=== PATIENT | female | born 1950 | race Caucasian/White ===

== ENCOUNTER 2018-06-24 13:52 | Inpatient (IN) | payer MEDICARE, BC ==
[~2018-06-24] VITALS: Ht 162.6 cm; Wt 117.9 kg
[2018-06-24 14:25] VITALS: BP 139/88
[2018-06-24] MEDS ORDERED: NS 1000ML 1,000 ML IV ONE ×2 (14:30→16:30)
[2018-06-24 14:35] LABS: BASOPHIL % 0.2 % (0.0-0.2); HEMOGLOBIN 14.2 g/dL (12.0-15.0); LYMPHOCYTES % 5.2 % (24.0-44.0); MEAN CELL HGB 29.8 pg (26-34); MEAN CELL HGB CONCENTRATION 32.5 g/dL (33-37); MEAN CORP VOLUME 91.8 fL (78-100); MEAN PLATELET VOLUME 10.8 fL (7.8-11.0); MONOCYTES # 2.1 10^3/uL (0.3-0.8); MONOCYTES % 11.3 % (5.0-12.0); NEUTROPHIL # 15.3 10^3/uL (1.8-7.7); NEUTROPHILS % 82.8 % (41.0-85.0); RED CELL DISTRIBUTION WIDTH 15.2 % (11.5-14.5); WHITE BLOOD CELL 18.4 10^3/uL (4.5-11.0)
[2018-06-24] MEDS ORDERED: NS 1000ML 1,000 ML ONE ×2 (14:35→16:12)
--- NOTE | 2018-06-24 14:46 | DIREP ---
PROCEDURE:CHEST 1 VIEW COMPARISON:[facility], CR, XRAY RIBS W/PA CHEST 3VWS-RT, 03/16/2018, 09:52 PM. INDICATIONS:fever FINDINGS: LUNGS/PLEURA:Lordotic projection and low lung volumes. Mild right basilar atelectasis or early infiltrate. No sizable pleural effusion. CARDIAC:Prominent cardiac silhouette and normal pulmonary vascularity. MEDIASTINUM:Normal BONES:Bilateral shoulder arthrosis. OTHER:No additional findings. CONCLUSION:Decreased aeration and mild right basilar atelectasis or early infiltrate. Dictated by: Zeynep Hudson MD on 06/24/2018 at 02:43 PM
[2018-06-24 15:11] LABS: BAND NEUTROPHILS 2 % (2-6); DIFFERENTIAL COMMENT NORMAL; LYMPHOCYTE 2 % (25-36); MONOCYTE 9 % (3-9); SEGMENTED NEUTROPHILS 87 % (31-76)
[2018-06-24 15:13] LABS: ALANINE AMINOTRANSFERASE(ML) 26 U/L (12-78); ALKALINE PHOSPHATASE 107 U/L (50-136); ASPARTATE AMINO TRANSFERASE 29 U/L (0-35); CARBON DIOXIDE 21.6 mmol/L (20.0-32); GLUCOSE 146 mg/dL (70-110)
--- NOTE | 2018-06-24 15:24 | PCM.EKG ---
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
[2018-06-24] MEDS ORDERED: ZITHROMAX 500 MG in NS 250ML 250 ML IV STA (16:02)
[2018-06-24] MEDS ORDERED: ROCEPHIN IM STA (16:02)
--- NOTE | 2018-06-24 16:07 | NUR ---
DIANE CONTRERAS IN ER TO SEE PT.
[2018-06-24] MEDS ORDERED: ROCEPHIN ONE (16:12)
[2018-06-24] MEDS ORDERED: NS 250ML 250 ML IV ONE ×2 (16:12→20:08)
--- NOTE | 2018-06-24 16:18 | ER.PDOC ---
General Chief Complaint: General Complaint Stated Complaint: FEVER,NAUSEA,BACK PAIN TRAVEL OUT OF US: No Time seen by MD: 15:03 Source: patient, family Exam Limitations: no limitations History of Present Illness Initial Comments the patient presents to the ER accompanied by her complaining of 4 day h /o shaking, chills, shortness of breath, subjective fever, malaise, and mild cough. the patient has had decreased po intake and urine output. she denies headache, vomiting, c/d, urinary c/o, neck pain, cp, ap, or rash. the patient notes lower back pain which occasionally flares up and is not new for her. no other allev/exac factors. no other complaints. Allergies: Coded Allergies: No Known Allergies (Unverified , 03/16/18) Past Medical History Surgical History: tubal, other LMP (females 10-50): postmenopause Social History Smoking: non-smoker Alcohol Use: none Drug Use: none Review of Systems Constitutional: fever, malaise, weakness EENTM: no symptoms reported Respiratory: cough, shortness of breath Cardiovascular: no symptoms reported Gastrointestinal: no symptoms reported Genitourinary: no symptoms reported Musculoskeletal: no symptoms reported Skin: no symptoms reported Psychiatric/Neurological: no symptoms reported Hematologic/Lymphatic: no symptoms reported Physical Exam General Appearance: No Apparent Distress, WD/WN, Obese EENT: eyes nml inspection, nml ENT inspection, pharynx nml Neck: Non-Tender, Full Range of Motion, Supple, Normal Inspection Respiratory: chest non-tender, no respiratory distress, no accessory muscle use , rales (bibasilar) CVS: reg rate & rhythm, no murmur, tachycardia Gastrointestinal: Normal Bowel Sounds, No Organomegaly, No Pulsatile Mass, Non Tender Back: Normal Inspection, No CVA Tenderness, Other (mild paralumbar tenderness) Extremities: Normal Range of Motion, Non-Tender, Normal Inspection, Swelling (1 + BLE) 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, No Motor/Sensory Deficits, Alert, Normal Mood/Affect, Oriented x 3 Skin: Normal Color, Warm/Dry Lymphatic: No Adenopathy Results/Orders Results/Orders Laboratory Tests Test 06/24/18 14:24 06/24/18 14:28 06/24/18 14:39 06/24/18 15:00 White Blood Count 18.4 10^3/uL (4.5-11.0) Red Blood Count 4.76 10^6/uL (4.00-5.20) Hemoglobin 14.2 g/dL (12.0-15.0) Hematocrit 43.7 % (36.0-46.0) Mean Corpuscular Volume 91.8 fL (78-100) Mean Corpuscular Hemoglobin 29.8 pg (26-34) Mean Corpuscular Hemoglobin Concent 32.5 g/dL (33-37) Red Cell Distribution Width 15.2 % (11.5-14.5) Platelet Count 180 10^3/uL (150-400) Mean Platelet Volume 10.8 fL (7.8-11.0) Neutrophils (%) (Auto) 82.8 % (41.0-85.0) Lymphocytes (%) (Auto) 5.2 % (24.0-44.0) Monocytes (%) (Auto) 11.3 % (5.0-12.0) Neutrophils # (Auto) 15.3 10^3/uL (1.8-7.7) Lymphocytes # (Auto) 1.0 10^3/uL (1.0-4.8) Monocytes # (Auto) 2.1 10^3/uL (0.3-0.8) Absolute Immature Granulocyte (auto 0.10 10^3 u/L (0-2) Eosinophils % 0.0 % (0.0-5.0) Basophils % 0.2 % (0.0-0.2) Basophils # 0.0 10^3/uL (0.0-0.1) Eosinophil Count 0.0 10^3/uL (0.0-0.2) Sodium Level 133 mmol/L (132-145) Potassium Level 3.2 mmol/L (3.6-5.2) Chloride Level 98.0 mmol/L (96-109) Carbon Dioxide Level 21.6 mmol/L (20.0-32) Anion Gap 16.6 Blood Urea Nitrogen 16 mg/dL (7-18) Creatinine 1.25 mg/dL (0.59-1.40) Estimated GFR () 51.3 (>/=60) BUN/Creatinine Ratio 12.0 Glucose Level 146 mg/dL (70-110) Calcium Level 9.0 mg/dL (8.4-10.5) Total Bilirubin 2.2 mg/dL (0.2-1.0) Aspartate Amino Transf (AST/SGOT) 29 U/L (0-35) Alanine Aminotransferase (ALT/SGPT) 26 U/L (12-78) Alkaline Phosphatase 107 U/L (50-136) Troponin I < 0.02 ng/mL (0.00-0.05) Pro-B-Type Natriuretic Peptide 201 pg/mL (0-125) Total Protein 7.7 g/dL (6.4-8.2) Albumin 2.8 g/dL (3.4-5.0) Globulin 4.9 Percent Immature Gran (Cell Imm) 0.50 % (0.00-0.50) Blood Gas Sample Site VBG Chidi Test N/A Lactic Acid (Blood Gas) 1.9 MMOL/L (0.5-1.0) Blood Gas Temperature 37 Differential Total Cells Counted 100 #CELLS Segmented Neutrophils 87 % (31-76) Band Neutrophils 2 % (2-6) Lymphocytes 2 % (25-36) Monocytes 9 % (3-9) Differential Comment NORMAL Influenza Type A Antigen NEGATIVE (NEG) Influenza B Immunofluorescence NEGATIVE (NEG) Administered Medications Medications (Trade) Dose Ordered Sig/Dimitris Route PRN Reason Start Time Stop Time Status Last Admin Dose Admin Sodium Chloride 1,000 ml @ 1,000 mls/hr Q1H ONCE IV 06/24/18 14:30 06/24/18 15:30 DC 06/24/18 14:50 Chest Xray - PROCEDURE: XR CHEST 1V EXAM DATE: 06/24/18 141 cc: MINNIE MOHR MD; RAJESH BAILON MD / CC: MINNIE MOHR MD; RAJESH BAILON MD PROCEDURE:CHEST 1 VIEW COMPARISON:[facility], CR, XRAY RIBS W/PA CHEST 3VWS-RT, 03/16/2018, 09:52 PM. INDICATIONS:fever FINDINGS: LUNGS/PLEURA:Lordotic projection and low lung volumes. Mild right basilar atelectasis or early infiltrate. No sizable pleural effusion. CARDIAC:Prominent cardiac silhouette and normal pulmonary vascularity. MEDIASTINUM:Normal BONES:Bilateral shoulder arthrosis. OTHER:No additional findings. CONCLUSION:Decreased aeration and mild right basilar atelectasis or early infiltrate. Dictated by: Rajesh Bailon MD on 06/24/2018 at 02:43 PM Progress Progress the patient has remained hemodynamically stable, afebrile and neurologically intact while in the ER. the patient was given NS 2L IVF and has been pancultured. given her leukocytosis, hyperbilirubinemia and tachycardia she meets criteria for sepsis. the patient was given rocephin 2 grams IV and zithromax 500mg IV. the case was d/w Dr. Smith who has evaluated the patient in the ER and agrees to admission. the patient will be admitted to the floor for further evaluation/management. Course Sepsis Screening Results: Posi: POSITIVE SEPSIS RISK Vitals & review Data Vital Sign - Last 24 Hours 06/24/18 06/24/18 06/24/18 14:19 14:25 14:26 Temp 99.1 99.1 99.1 99.1 99.1 99.1 Pulse 107 107 107 Resp 20 20 20 B/P (MAP) 139/88 (105) Pulse Ox 91 91 O2 Delivery Room Air Room Air Laboratory Tests Test 06/24/18 14:24 06/24/18 14:28 06/24/18 14:39 06/24/18 15:00 White Blood Count 18.4 10^3/uL Red Blood Count 4.76 10^6/uL Hemoglobin 14.2 g/dL Hematocrit 43.7 % Mean Corpuscular Volume 91.8 fL Mean Corpuscular Hemoglobin 29.8 pg Mean Corpuscular Hemoglobin Concent 32.5 g/dL Red Cell Distribution Width 15.2 % Platelet Count 180 10^3/uL Mean Platelet Volume 10.8 fL Neutrophils (%) (Auto) 82.8 % Lymphocytes (%) (Auto) 5.2 % Monocytes (%) (Auto) 11.3 % Neutrophils # (Auto) 15.3 10^3/uL Lymphocytes # (Auto) 1.0 10^3/uL Monocytes # (Auto) 2.1 10^3/uL Absolute Immature Granulocyte (auto 0.10 10^3 u/L Eosinophils % 0.0 % Basophils % 0.2 % Basophils # 0.0 10^3/uL Eosinophil Count 0.0 10^3/uL Sodium Level 133 mmol/L Potassium Level 3.2 mmol/L Chloride Level 98.0 mmol/L Carbon Dioxide Level 21.6 mmol/L Anion Gap 16.6 Blood Urea Nitrogen 16 mg/dL Creatinine 1.25 mg/dL Estimated GFR () 51.3 BUN/Creatinine Ratio 12.0 Glucose Level 146 mg/dL Calcium Level 9.0 mg/dL Total Bilirubin 2.2 mg/dL Aspartate Amino Transf (AST/SGOT) 29 U/L Alanine Aminotransferase (ALT/SGPT) 26 U/L Alkaline Phosphatase 107 U/L Troponin I < 0.02 ng/mL Pro-B-Type Natriuretic Peptide 201 pg/mL Total Protein 7.7 g/dL Albumin 2.8 g/dL Globulin 4.9 Percent Immature Gran (Cell Imm) 0.50 % Blood Gas Sample Site VBG Chidi Test N/A Lactic Acid (Blood Gas) 1.9 MMOL/L Blood Gas Temperature 37 Differential Total Cells Counted 100 #CELLS Segmented Neutrophils 87 % Band Neutrophils 2 % Lymphocytes 2 % Monocytes 9 % Differential Comment NORMAL Influenza Type A Antigen NEGATIVE Influenza B Immunofluorescence NEGATIVE Current Medications Medications (Trade) Dose Ordered Sig/Dimitris PRN Reason Start Time Stop Time Status Last Admin Azithromycin 500 mg/Sodium Chloride 250 ml @ 175 mls/hr STAT STAT 06/24/18 16:02 06/24/18 17:27 Departure Time of Disposition: 16:10 Disposition: 09 ADMITTED INPATIENT Impression: Primary Impression: Sepsis Additional Impression: CAP (community acquired pneumonia) Condition: Stable Referrals: ADAMS ALMANZAR NP (PCP) PRIMARY CARE PROVIDER Duration or Time Spent with Pa: 35 Problem Qualifiers MINNIE MOHR MD Jun 24, 2018 16:18
[2018-06-24] MEDS ORDERED: ROCEPHIN IV STA (16:33)
[2018-06-24 16:40] VITALS: BP 130/54
[2018-06-24 16:54] LABS: BILIRUBIN,URINE NEGATIVE (NEGATIVE); UROBILINOGEN,URINE NORMAL (NEGATIVE)
[2018-06-24 17:10] VITALS: BP 128/65
[2018-06-24 17:15] LABS: APPEARANCE,URINE CLOUDY (CLEAR); UA COLOR YELLOW (YELLOW)
[2018-06-24] MEDS ORDERED: DUONEB 0.5 MG-3 MG/3 ML SOLN IH PRN (17:30)
[2018-06-24] MEDS ORDERED: OXY-IR PO PRN (17:30)
[2018-06-24 17:35] VITALS: BP 130/65
--- NOTE | 2018-06-24 17:59 | PCM.HP ---
History of Present Illness History of Present Illness 68-year-old female withs history of hypertension and seizure disorder who comes in today in the ER with 3 days history of generalized malaise and one-day history of shortness of breath, fever, and chills. In the ER she was noted with a temperature of 99.1 with a pulse of 107 and a blood pressure of 130s systolic. Chest x-ray reveals an infiltrate concerning for CAP. She had leukocytosis of 18,000 and lactate of 1.9. She met sepsis criteria based on the above points. She also had an elevated total bilirubin. Troponin was negative. ProBNP was 700. A urinalysis is pending. She was started on Rocephin and Azithro and the hospitalist team is called for admission. Allergies: No known drug allergies Past medical history: Postmenopausal History of brain aneurysm Hypertension Seizure disorder History of prior [place] Past surgical history: Bilateral tubal ligation Brain aneurysm surgery Bladder stone removal 2 years ago. Family and social history: Used to smoke but quit in 08/27/1990. Occasional alcohol Denies marijuana Denies cocaine Lives here in [place] with her Has 3 children. Travel Hx EBOLA RISK:Travel to/contact w: No Is pt experiencing any Ebola s: No Review of Systems Constitutional: Fever, Chills, Sweats; No: Weakness, Malaise, Other Eyes: No: Pain, Vision change, Conjunctivae inflammation, Eyelid inflammation, Other, Redness ENT: No: Ear pain, Ear discharge, Nose pain, Nose discharge, Nose congestion, Mouth pain, Mouth swelling, Throat pain, Throat swelling, Other Respiratory: Cough, Shortness of breath; No: Dry, SOB with excertion, Wheezing , Hemoptysis, Pleuritic Pain, Sputum, Wheezing, Other Cardiovascular: No: Chest Pain, Palpitations, Orthopnea, Paroxysmal Noc. Dyspnea, Edema, Lt Headedness, Other Gastrointestinal: No: Nausea, Vomiting, Abdominal Pain, Diarrhea, Constipation , Melena, Hematochezia, Other Genitourinary: No Dysuria, No Frequency, No Incontinence, No Hematuria, No Retention, No Other Musculoskeletal: No: other, neck pain, shoulder pain, arm pain, back pain, hand pain, leg pain, foot pain Skin: No: Rash, Lesions, Jaundice, Bruising, Other Neurological: No: Weakness, Numbness, Incoordination, Change in speech, Confusion, Seizures, Other Allergies: Coded Allergies: No Known Allergies (Unverified , 03/16/18) Exam Vital Signs Vital Signs Date Time Temp Pulse Resp B/P (MAP) Pulse Ox O2 Delivery O2 Flow Rate FiO2 06/24/18 14:26 99.1 107 20 99.1 06/24/18 14:25 139/88 (105) 91 Room Air Laboratory Tests 06/24/18 14:24: White Blood Count 18.4H, Red Blood Count 4.76, Hemoglobin 14.2, Hematocrit 43.7 , Mean Corpuscular Volume 91.8, Mean Corpuscular Hemoglobin 29.8, Mean Corpuscular Hemoglobin Concent 32.5L, Red Cell Distribution Width 15.2H, Platelet Count 180, Mean Platelet Volume 10.8, Neutrophils (%) (Auto) 82.8, Lymphocytes (%) (Auto) 5.2*L, Monocytes (%) (Auto) 11.3, Neutrophils # (Auto) 15.3H, Lymphocytes # (Auto) 1.0, Monocytes # (Auto) 2.1H, Absolute Immature Granulocyte (auto 0.10, Eosinophils % 0.0, Basophils % 0.2, Basophils # 0.0, Eosinophil Count 0.0, Sodium Level 133, Potassium Level 3.2L, Chloride Level 98.0, Carbon Dioxide Level 21.6, Anion Gap 16.6, Blood Urea Nitrogen 16, Creatinine 1.25, Estimated GFR () 51.3, BUN/Creatinine Ratio 12.0, Glucose Level 146H, Calcium Level 9.0, Total Bilirubin 2.2H, Aspartate Amino Transf (AST/SGOT) 29, Alanine Aminotransferase (ALT/SGPT) 26, Alkaline Phosphatase 107, Troponin I < 0.02, Pro-B-Type Natriuretic Peptide 201H, Total Protein 7.7, Albumin 2.8L, Globulin 4.9, Percent Immature Gran (Cell Imm) 0.50 06/24/18 14:28: Blood Gas Sample Site VBG, Chidi Test N/A, Lactic Acid (Blood Gas) 1.9H, Blood Gas Temperature 37 06/24/18 14:39: Differential Total Cells Counted 100, Segmented Neutrophils 87H, Band Neutrophils 2, Lymphocytes 2L, Monocytes 9, Differential Comment NORMAL 06/24/18 15:00: Influenza Type A Antigen NEGATIVE, Influenza B Immunofluorescence NEGATIVE 06/24/18 16:50: Urine Collection Type VOID, Urine Color YELLOW, Urine Appearance CLOUDYH, Urine Bilirubin NEGATIVE, Urine Ketones 50 mg/dL, Urine Specific [place] 1.010, Urine pH 6, Urine Protein 15 mg/dLH, Urine Urobilinogen NORMAL, Urine Nitrate NEGATIVE , Urine Leukocyte Esterase 500/uL 2+, Urine Blood 150 3+H, Urine RBC 2-5, Urine WBC TNTCH, Urine Squamous Epithelial Cells FEW, Urine Bacteria MANYH, Urine Glucose NORMAL General Appearance: Alert, Oriented X3, Other (obese) HEENT: Atraumatic, PERRLA, EOMI Respiratory: Clear to auscultation, Normal air movement Cardiovascular: Regular rate, Normal S1, Normal S2 Abdominal: Normal bowel sounds, Soft, No tenderness Extremities: No clubbing, No cyanosis, Other (slight bilateral pedal edema) Skin: No rash, No breakdown Neuro: Normal gait, Normal speech, Cranial nerves 3-12 NL Assessment/Plan Assessment/Plan Assessment/Plan PATIENT NAME: REBECA SANCHEZ MR#: [id number] : 1950 LOCATION: ER ROOM#: BED: SEX: F AGE: 68 SERVICE DATE: 06/24/18 1352 ORDERING PHYSICIAN: MINNIE MOHR MD RAD#: [id number] ACCESSION NUMBER(s): [id number] PROCEDURE: XR CHEST 1V EXAM DATE: 06/24/18 1412 cc: MINNIE MOHR MD; RAJESH BAILON MD / CC: MINNIE MOHR MD; RAJESH BAILON MD PROCEDURE:CHEST 1 VIEW COMPARISON:[facility], CR, XRAY RIBS W/PA CHEST 3VWS-RT, 03/16/2018, 09:52 PM. INDICATIONS:fever FINDINGS: LUNGS/PLEURA:Lordotic projection and low lung volumes. Mild right basilar atelectasis or early infiltrate. No sizable pleural effusion. CARDIAC:Prominent cardiac silhouette and normal pulmonary vascularity. MEDIASTINUM:Normal BONES:Bilateral shoulder arthrosis. OTHER:No additional findings. CONCLUSION:Decreased aeration and mild right basilar atelectasis or early infiltrate. Dictated by: Rajesh Bailon MD on 06/24/2018 at 02:43 PM Plan ASSESSMENT: Sepsis secondary to commence acquired pneumonia Comment acquired pneumonia United tract infection: Leukocytosis 18,000 Mild hypokalemia Hypoglycemia 146 Elevated to the bilirubin which could be an active phase reactants ProBNP 201 Mild hypo-albuminemia Hypertension Seizure disorder Obesity Postmenopausal PLAN: Admit patient to general medical floor. Continue Rocephin and azithromycin Gentle IV hydration Replace potassium Consider hyperglycemic protocol Resume home medications GI prophylaxis DVT prophylaxis CATHERINE CONTRERAS DO Jun 24, 2018 17:59
--- NOTE | 2018-06-24 18:00 | NUR ---
TRANSFERRED PT TO MED SURG VIA W/C WITH BELONGINGS. REPORT GIVEN TO LUCIE DINERO
[2018-06-24] MEDS ORDERED: POTASSIUM CHLORIDE PO STA (18:06)
[2018-06-24 18:22] VITALS: BP 143/85
--- NOTE | 2018-06-24 19:22 | NUR ---
Report Received report from Sd Kwok RN
[2018-06-24 19:46] VITALS: BP 145/60
[2018-06-24] MEDS: NS 1000ML 1,000 ML IV SCH (20:15)
[2018-06-24 20:40] LABS: ABG PCO2 26.8 mmHg (35.0-45.0); ABG PH 7.454 (7.350-7.450); BE(B) -3.9 mmol/L (-2.0-2.0); HCO3act 18.4 mmol/L (22.0-26.0); pO2 58.2 mmHg (75.0-100.0)
[2018-06-24] MEDS ORDERED: ROCEPHIN 1,000 MG in NS 100ML 100 ML IV SCH (21:30)
[2018-06-25 00:33] VITALS: BP 136/68
[2018-06-25 04:29] VITALS: BP 131/74
[2018-06-25 04:55] LABS: BASOPHIL % 0.1 % (0.0-0.2); EOSINOPHIL % 0.1 % (0.0-5.0); HEMOGLOBIN 12.8 g/dL (12.0-15.0); LYMPHOCYTES # 1.1 10^3/uL (1.0-4.8); LYMPHOCYTES % 6.4 % (24.0-44.0); MEAN CELL HGB 29.8 pg (26-34); MEAN CELL HGB CONCENTRATION 32.5 g/dL (33-37); MEAN CORP VOLUME 91.8 fL (78-100); MONOCYTES # 2.4 10^3/uL (0.3-0.8); MONOCYTES % 14.3 % (5.0-12.0); NEUTROPHILS % 78.6 % (41.0-85.0); RED CELL DISTRIBUTION WIDTH 15.2 % (11.5-14.5); WHITE BLOOD CELL 16.6 10^3/uL (4.5-11.0)
[2018-06-25 05:21] LABS: CALCIUM 8.2 mg/dL (8.4-10.5); CARBON DIOXIDE 20.2 mmol/L (20.0-32)
--- NOTE | 2018-06-25 07:04 | NUR ---
Report Report given to Evy Mcclain LVN
[2018-06-25] MEDS: NS 1000ML 1,000 ML IV SCH ×2 (07:26→22:55)
[2018-06-25] MEDS ORDERED: KCL 20MEQ/100ML 100 ML IV ONE ×4 (07:37→14:00)
--- NOTE | 2018-06-25 07:55 | NUR ---
DIANE CONTRERAS NOTIFIED OF POTASSIUM LEVEL OF 3.3. PT STATED THE LIQUID POTASSIUM MADE HER NAUSEOUS AND VOMIT. NEW ORDERS RECEIVED. IV POTASSIUM INITIATED. PLACED PT ON TELEMETRY. PT EDUCATED ON SIGNS AND SYMPTOMS OF HYPERKALEMIA. NO QUESTIONS OR CONCERNS AT THIS TIME
[2018-06-25 07:56] VITALS: BP 143/72
[2018-06-25] MEDS ORDERED: ROCEPHIN 1,000 MG in NS 100ML 100 ML IV SCH (09:00)
[2018-06-25] MEDS ORDERED: ROCEPHIN IM IM SCH (09:00)
[2018-06-25] MEDS ORDERED: ZITHROMAX PO SCH (09:00)
--- NOTE | 2018-06-25 09:40 | NUR ---
DISCHARGE PLAN CASE MANAGEMENT VISITED WITH PATIENT CONCERNING DISCHARGE PLAN AND NEEDS. LIVES AT HOME WITH . INDEPEDENT OF ADLS. RETIRED F[employer]. DENIES NEED FOR DME OR HOME OXYGEN. DENIES NEED FOR HOME HEALTH OR OUTPATIENT SERVICES. HAS FINANCIAL ABILITY TO PAY FOR MEDICATIONS UPON DISCHARGE IF NEEDED. DISCHARGE GOAL IS TO DISCHARGE HOME WITH AND CONTINUE SELF CARE. DENIES FURTHER NEEDS AT THIS TIME.
[2018-06-25] MEDS ORDERED: NS 100ML 100 ML IV ONE ×2 (10:17→13:30)
[2018-06-25] MEDS ORDERED: ROCEPHIN ONE (10:20)
[2018-06-25] MEDS: PROTONIX PO SCH (10:34)
[2018-06-25] MEDS ORDERED: METO25TA4 PO (11:08)
[2018-06-25] MEDS ORDERED: LEVE500T54 PO (11:08)
[2018-06-25 12:13] VITALS: BP 124/55
[2018-06-25] MEDS ORDERED: BUMINATE 25% IV STA (12:37)
--- NOTE | 2018-06-25 12:48 | PRM.PN ---
Subjective Subjective Date: Jun 25, 2018 Time: 12:45 Subjective Patient is seen in the [place]az[place] sitting on the commode because she has been having diarrhea. She describes diarrhea as loose and watery but has been going on for a while. She denies any fever today. She is beginning to eat better and drink better. She was noted with a Urinary tract infection and urine culture is growing gram-negative rods. She also has pneumonia. Patient is currently on ceftriaxone and azithromycin. She was noted with hypokalemia and hypoalbuminemia this morning being replaced. Patient History: Congestive heart failure 30 MOTHER 33 FATHER Review of Systems Constitutional: Fever, Chills, Sweats; No: Weakness, Malaise, Other Eyes: No: Pain, Vision change, Conjunctivae inflammation, Eyelid inflammation, Other, Redness ENT: No: Ear pain, Ear discharge, Nose pain, Nose discharge, Nose congestion, Mouth pain, Mouth swelling, Throat pain, Throat swelling, Other Respiratory: Cough, Shortness of breath; No: Dry, SOB with excertion, Wheezing , Hemoptysis, Pleuritic Pain, Sputum, Wheezing, Other Cardiovascular: No: Chest Pain, Palpitations, Orthopnea, Paroxysmal Noc. Dyspnea, Edema, Lt Headedness, Other Gastrointestinal: No: Nausea, Vomiting, Abdominal Pain, Diarrhea, Constipation , Melena, Hematochezia, Other Genitourinary: No Dysuria, No Frequency, No Incontinence, No Hematuria, No Retention, No Other Musculoskeletal: No: other, neck pain, shoulder pain, arm pain, back pain, hand pain, leg pain, foot pain Skin: No: Rash, Lesions, Jaundice, Bruising, Other Neurological: No: Weakness, Numbness, Incoordination, Change in speech, Confusion, Seizures, Other Allergies: Coded Allergies: No Known Allergies (Unverified , 03/16/18) Scheduled Levetiracetam (Keppra), 1 TAB PO TID, (Reported) Metoprolol Tartrate 25MG (Lopresser 25MG), 1 TAB PO BID, (Reported) Objective General: Alert, Oriented X3, Cooperative, No acute distress HEENT: Atraumatic, PERRLA Neck: Supple, No JVD Lungs: Clear to auscultation, Normal air movement Heart: Regular rate, Normal S1, Normal S2 Abdomen: Normal bowel sounds, Soft, No tenderness Extremities: No clubbing, No cyanosis Skin: No rashes, No breakdown Course Sepsis Screening Results: Posi: NEGATIVE Sepsis Qualifier/Stage: NO DEFINITE RISK Vitals & review Data Vital Sign - Last 24 Hours 06/24/18 06/24/18 06/24/18 14:19 14:25 14:26 Temp 99.1 99.1 99.1 99.1 99.1 99.1 Pulse 107 107 107 Resp 20 20 20 B/P (MAP) 139/88 (105) Pulse Ox 91 91 O2 Delivery Room Air Room Air Laboratory Tests Test 06/24/18 14:24 06/24/18 14:28 06/24/18 14:39 06/24/18 15:00 White Blood Count 18.4 10^3/uL Red Blood Count 4.76 10^6/uL Hemoglobin 14.2 g/dL Hematocrit 43.7 % Mean Corpuscular Volume 91.8 fL Mean Corpuscular Hemoglobin 29.8 pg Mean Corpuscular Hemoglobin Concent 32.5 g/dL Red Cell Distribution Width 15.2 % Platelet Count 180 10^3/uL Mean Platelet Volume 10.8 fL Neutrophils (%) (Auto) 82.8 % Lymphocytes (%) (Auto) 5.2 % Monocytes (%) (Auto) 11.3 % Neutrophils # (Auto) 15.3 10^3/uL Lymphocytes # (Auto) 1.0 10^3/uL Monocytes # (Auto) 2.1 10^3/uL Absolute Immature Granulocyte (auto 0.10 10^3 u/L Eosinophils % 0.0 % Basophils % 0.2 % Basophils # 0.0 10^3/uL Eosinophil Count 0.0 10^3/uL Sodium Level 133 mmol/L Potassium Level 3.2 mmol/L Chloride Level 98.0 mmol/L Carbon Dioxide Level 21.6 mmol/L Anion Gap 16.6 Blood Urea Nitrogen 16 mg/dL Creatinine 1.25 mg/dL Estimated GFR () 51.3 BUN/Creatinine Ratio 12.0 Glucose Level 146 mg/dL Calcium Level 9.0 mg/dL Total Bilirubin 2.2 mg/dL Aspartate Amino Transf (AST/SGOT) 29 U/L Alanine Aminotransferase (ALT/SGPT) 26 U/L Alkaline Phosphatase 107 U/L Troponin I < 0.02 ng/mL Pro-B-Type Natriuretic Peptide 201 pg/mL Total Protein 7.7 g/dL Albumin 2.8 g/dL Globulin 4.9 Percent Immature Gran (Cell Imm) 0.50 % Blood Gas Sample Site VBG Chidi Test N/A Lactic Acid (Blood Gas) 1.9 MMOL/L Blood Gas Temperature 37 Differential Total Cells Counted 100 #CELLS Segmented Neutrophils 87 % Band Neutrophils 2 % Lymphocytes 2 % Monocytes 9 % Differential Comment NORMAL Influenza Type A Antigen NEGATIVE Influenza B Immunofluorescence NEGATIVE Current Medications Medications (Trade) Dose Ordered Sig/Dimitris PRN Reason Start Time Stop Time Status Last Admin Azithromycin 500 mg/Sodium Chloride 250 ml @ 175 mls/hr STAT STAT 06/24/18 16:02 06/24/18 17:27 Assessment/Plan Assessment/Plan Assessment/Plan PATIENT: REBECA SANCHEZ ACCT: [id number] LOC: MS U : [id number] AGE/SX: 68/F ROOM: 340 REG : 06/24/[address]: CATHERINE CONTRERAS DO : 1950 BED: A DIS : STATUS: ADM IN TLOC: SPEC #: [id number] AUGIE: 06/24/18 STATUS: RES REQ #: [id number] RECD: 06/24/18-[address] [facility] [address]: MINNIE MOHR MD SOURCE: URINE CC ENTR: 06/24/18-[address]: ADAMS ALMANZAR, GERALDO SPDESC: ORDERED: UR CULTURE Procedure Result URINE CULTURE Preliminary PRELIMINARY REPORT GRAM NEGATIVE TEOFILO, CC=50,000 CFU/ML AT 12 HOURS ID AND SENSITIVITY TO FOLLOW Plan ASSESSMENT: Sepsis secondary to community acquired pneumonia & UTI Community acquired pneumonia Gram Neg United tract infection: Hyperglycemia 146 Elevated Total bilirubin worsening ProBNP 201 Mild hypo-albuminemia/Mild Malnutrition Hypertension Seizure disorder Obesity Postmenopausal PLAN: Continue Rocephin and azithromycin Cont gentle IV hydration for now Replace potassium Replace Albumin Consider hyperglycemic protocol Cont home medications GI prophylaxis DVT prophylaxis CATHERINE CONTRERAS DO Jun 25, 2018 12:48
[2018-06-25] MEDS ORDERED: KEPPRA PO SCH (15:00)
--- NOTE | 2018-06-25 16:10 | NUR ---
IV POTASSIUM COMPLETE. DISCONTINUED OFF OF TELEMETRY. NO S/S OF HYPERKALEMIA NOTED. PT RESTING IN BED AWAKE. NO S/S OF DISTRESS NOTED. RESP EVEN AND NONLABORED. NO QUESTIONS OR CONCERNS AT THIS TIME
--- NOTE | 2018-06-25 16:30 | NUR ---
ENCOURAGED PT TO AMBULATE IN HALLWAY. PT REFUSED TO AMBULATE IN HALLWAY. STATES "I LOOK LIKE A MESS TO GO WALKING TODAY" PT STATES SHE HAS BEEN WALKING IN THE ROOM TODAY AND WAS ENCOURAGED TO CONTINUE AMBULATING IN ROOM IF SHE CONTINUES TO REFUSE TO AMBULATE IN HALLWAY.
[2018-06-25] MEDS: KEPPRA PO SCH (17:20)
[2018-06-25] MEDS: TYLENOL PO PRN (17:20)
[2018-06-25 17:22] VITALS: BP 128/65
[2018-06-25] MEDS ORDERED: LOVENOX SQ ONE (18:35)
[2018-06-25] MEDS: LOVENOX SQ SCH (19:23)
[2018-06-25 19:40] VITALS: BP 121/58
[2018-06-25] MEDS: LOPRESSER PO SCH (20:42)
[2018-06-26 00:23] VITALS: BP 140/55
--- NOTE | 2018-06-26 01:15 | NUR ---
PATIENT IV IN LEFT HAND FOUND TO LOOSENED AND IV CATHETER HAD BECOME KINKED. IV WOULD NOT FLUSH. REMOVED IV. INFORMED PATIENT THAT I WOULD HOOK HER IV FLUIDS TO THE IV IN HER RIGHT HAND AND THEN PATIENT STATES "I TOOK THAT ONE OUT" WHEN ASKED WHY SHE TOOK IT OUT SHE STATES "I'M GOING HOME TODAY SO I DIDN'T THINK I NEEDED IT ANYMORE." SATHISH DINERO ATTEMPTED TWO TIMES TO REINSERT IV BOTH TIMES UNSUCCESSFUL AND PATIENT WOULD NOT ALLOW NURSE TO REATTEMPT. PATIENT INFORMED OF NEED FOR FLUIDS AND ORDERED 0900 ANTIBIOTIC AND THAT SHE WOULD NEED IV PLACEMENT FOR THOSE. SHE STATES "I'M GOING HOME TODAY SO IT DOES NOT MATTER" DR CONTRERAS WILL BE NOTIFIED.
[2018-06-26 04:03] VITALS: BP 126/57
[2018-06-26] MEDS: TYLENOL PO PRN ×2 (04:07→18:06)
[2018-06-26 04:59] LABS: BASOPHIL % 0.2 % (0.0-0.2); EOSINOPHIL # 0.1 10^3/uL (0.0-0.2); EOSINOPHIL % 0.4 % (0.0-5.0); HEMOGLOBIN 12.5 g/dL (12.0-15.0); LYMPHOCYTES # 1.3 10^3/uL (1.0-4.8); LYMPHOCYTES % 8.1 % (24.0-44.0); MEAN CELL HGB 29.6 pg (26-34); MEAN CELL HGB CONCENTRATION 32.4 g/dL (33-37); MEAN CORP VOLUME 91.5 fL (78-100); MEAN PLATELET VOLUME 10.9 fL (7.8-11.0); MONOCYTES # 2.2 10^3/uL (0.3-0.8); MONOCYTES % 14.5 % (5.0-12.0); NEUTROPHIL # 11.6 10^3/uL (1.8-7.7); NEUTROPHILS % 75.3 % (41.0-85.0); RED CELL DISTRIBUTION WIDTH 15.3 % (11.5-14.5); WHITE BLOOD CELL 15.4 10^3/uL (4.5-11.0)
[2018-06-26 05:14] LABS: CALCIUM 8.3 mg/dL (8.4-10.5); CARBON DIOXIDE 22.2 mmol/L (20.0-32)
--- NOTE | 2018-06-26 06:57 | NUR ---
NOTIFIED DR CONTRERAS OF PT HAVING NO IV ACCESS AND REFUSAL TO HAVE ANOTHER NURSE PERFORM AN IV ATTEMPT. ALSO NOTIFIED DR CONTRERAS OF FEVER REPORTED FROM LAST NIGHT. DR CONTRERAS STATED THAT PT WILL NEED A MIDLINE D/T ABT AND ABNORMAL LABS.
--- NOTE | 2018-06-26 07:12 | NUR ---
REPORT REPORT GIVEN TO ODALIS ELAM. CARE RELINQUISHED.
--- NOTE | 2018-06-26 07:23 | PRM.PN ---
Subjective Subjective Date: Jun 26, 2018 Time: 07:16 Subjective Patient had a temperature of 101.4 about 3 hours ago. She continues to have diarrhea. A specimen will need to be sent off for stool studies including culture and C. difficile. Otherwise patient states that she feels better and had a a good sleep this past night. She denies any nausea or vomiting. She denies any worsening cough and she denies any dysuria or frequency of micturition. Patient History: Congestive heart failure 32 MOTHER 33 FATHER Objective Vitals and I/O Vital Sign - Last 24 Hours 06/25/18 06/25/18 06/25/18 06/25/18 07:56 08:36 12:13 17:22 Temp 98.1 99.2 99.7 98.1 99.2 99.7 Pulse 94 75 84 Resp 18 B/P (MAP) 143/72 (95) 124/55 (78) 128/65 (86) Pulse Ox 90 90 90 O2 Delivery Room Air Room Air Room Air Room Air 06/25/18 06/25/18 06/25/18 06/26/18 19:34 19:40 20:42 00:23 Temp 98.9 98.7 98.9 98.7 Pulse 91 91 90 Resp 22 20 B/P (MAP) 121/58 (79) 121/58 140/55 (83) Pulse Ox 91 95 O2 Delivery Room Air 06/26/18 04:03 Temp 101.4 101.4 Pulse 91 Resp 21 B/P (MAP) 126/57 (80) Pulse Ox 92 Intake and Output 06/25/18 06/25/18 06/26/18 15:00 23:00 07:00 Intake Total 240 ml 1540 ml Output Total 1200 ml 700 ml 700 ml Balance -960 ml 840 ml -700 ml General: Alert, Oriented X3, Cooperative, No acute distress HEENT: Atraumatic, PERRLA Neck: Supple, No JVD Lungs: Clear to auscultation Heart: Regular rate, Normal S1, Normal S2, No murmurs Abdomen: Normal bowel sounds, Soft, No tenderness, No masses Extremities: No clubbing, No cyanosis, No edema, Normal pulses, No tenderness/ swelling Skin: No rashes, No breakdown, No significant lesion Neuro: Normal gait, Normal speech, Strength at 5/5 X4 ext, Normal tone, Sensation intact Psych/Mental Status: Mental status NL, Mood NL Medication Reconciliation Scheduled Levetiracetam (Keppra), 1 TAB PO TID, (Reported) Metoprolol Tartrate 25MG (Lopresser 25MG), 1 TAB PO BID, (Reported) Course Sepsis Screening Results: Posi: NEGATIVE Sepsis Qualifier/Stage: NO DEFINITE RISK Vitals & review Data Laboratory Tests Test 06/24/18 14:24 06/24/18 14:28 06/24/18 14:39 06/24/18 15:00 White Blood Count 18.4 10^3/uL Red Blood Count 4.76 10^6/uL Hemoglobin 14.2 g/dL Hematocrit 43.7 % Mean Corpuscular Volume 91.8 fL Mean Corpuscular Hemoglobin 29.8 pg Mean Corpuscular Hemoglobin Concent 32.5 g/dL Red Cell Distribution Width 15.2 % Platelet Count 180 10^3/uL Mean Platelet Volume 10.8 fL Neutrophils (%) (Auto) 82.8 % Lymphocytes (%) (Auto) 5.2 % Monocytes (%) (Auto) 11.3 % Neutrophils # (Auto) 15.3 10^3/uL Lymphocytes # (Auto) 1.0 10^3/uL Monocytes # (Auto) 2.1 10^3/uL Absolute Immature Granulocyte (auto 0.10 10^3 u/L Eosinophils % 0.0 % Basophils % 0.2 % Basophils # 0.0 10^3/uL Eosinophil Count 0.0 10^3/uL Sodium Level 133 mmol/L Potassium Level 3.2 mmol/L Chloride Level 98.0 mmol/L Carbon Dioxide Level 21.6 mmol/L Anion Gap 16.6 Blood Urea Nitrogen 16 mg/dL Creatinine 1.25 mg/dL Estimated GFR () 51.3 BUN/Creatinine Ratio 12.0 Glucose Level 146 mg/dL Calcium Level 9.0 mg/dL Total Bilirubin 2.2 mg/dL Aspartate Amino Transf (AST/SGOT) 29 U/L Alanine Aminotransferase (ALT/SGPT) 26 U/L Alkaline Phosphatase 107 U/L Troponin I < 0.02 ng/mL Pro-B-Type Natriuretic Peptide 201 pg/mL Total Protein 7.7 g/dL Albumin 2.8 g/dL Globulin 4.9 Percent Immature Gran (Cell Imm) 0.50 % Blood Gas Sample Site VBG Chidi Test N/A Lactic Acid (Blood Gas) 1.9 MMOL/L Blood Gas Temperature 37 Differential Total Cells Counted 100 #CELLS Segmented Neutrophils 87 % Band Neutrophils 2 % Lymphocytes 2 % Monocytes 9 % Differential Comment NORMAL Influenza Type A Antigen NEGATIVE Influenza B Immunofluorescence NEGATIVE Current Medications Medications (Trade) Dose Ordered Sig/Dimitris PRN Reason Start Time Stop Time Status Last Admin Azithromycin 500 mg/Sodium Chloride 250 ml @ 175 mls/hr STAT STAT 06/24/18 16:02 06/24/18 17:27 Laboratory Tests 06/26/18 04:38: White Blood Count 15.4H, Red Blood Count 4.22, Hemoglobin 12.5, Hematocrit 38.6 , Mean Corpuscular Volume 91.5, Mean Corpuscular Hemoglobin 29.6, Mean Corpuscular Hemoglobin Concent 32.4L, Red Cell Distribution Width 15.3H, Platelet Count 182, Mean Platelet Volume 10.9, Neutrophils (%) (Auto) 75.3, Lymphocytes (%) (Auto) 8.1L, Monocytes (%) (Auto) 14.5H, Neutrophils # (Auto) 11.6H, Lymphocytes # (Auto) 1.3, Monocytes # (Auto) 2.2H, Absolute Immature Granulocyte (auto 0.23, Eosinophils % 0.4, Basophils % 0.2, Basophils # 0.0, Eosinophil Count 0.1, Sodium Level 136, Potassium Level 3.2L, Chloride Level 103.0, Carbon Dioxide Level 22.2, Anion Gap 14.0, Blood Urea Nitrogen 7, Creatinine 1.00, Estimated GFR () 66.3, BUN/Creatinine Ratio 7.0 , Glucose Level 131H, Calcium Level 8.3L, Magnesium Level 1.9, Total Bilirubin 1.0, Aspartate Amino Transf (AST/SGOT) 43H, Alanine Aminotransferase (ALT/SGPT) 49, Alkaline Phosphatase 117, Total Protein 6.5, Albumin 2.4L, Globulin 4.1, Percent Immature Gran (Cell Imm) 1.50H Assessment/Plan Assessment/Plan Assessment/Plan Assessment/Plan PATIENT: REBECA SANCHEZ ACCT: [id number] LOC: U : [id number] AGE/SX: 68/F ROOM: 340 REG : 06/24/[address]: CATHERINE CONTRERAS DO : 1950 BED: A DIS : STATUS: ADM IN TLOC: SPEC #: [id number] AUGIE: 06/24/18 STATUS: RES REQ #: [id number] RECD: 06/24/[address] [facility] [address]: MINNIE MOHR MD SOURCE: URINE CC ENTR: 06/24/18-[address]: ADAMS ALMANZAR NP SPDESC: ORDERED: UR CULTURE Procedure Result URINE CULTURE Preliminary PRELIMINARY REPORT GRAM NEGATIVE TEOFILO, CC=50,000 CFU/ML AT 12 HOURS ID AND SENSITIVITY TO FOLLOW Plan ASSESSMENT: Sepsis secondary to community acquired pneumonia & UTI: improving. Lactate heading in the right direction. Community acquired pneumonia Gram Neg Urinary tract infection: Elevated Total bilirubin iimproved Mild hypo-albuminemia/Mild Malnutrition Hypertension Seizure disorder Obesity Postmenopausal PLAN: Change Rocephin and azithromycin to Levaquin. Cont gentle IV hydration for now Replace potassium Replace Albumin Cont home medications Establish a midline as patient is a hard stick. Follow blood and urine cultures. GI prophylaxis DVT prophylaxis CATHERINE CONTRERAS DO Jun 26, 2018 07:22
[2018-06-26] MEDS ORDERED: LEVAQUIN 150 ML IV ONE (07:30)
[2018-06-26] MEDS ORDERED: BUMINATE 25% IV STA (07:54)
[2018-06-26] MEDS: PROTONIX PO SCH (09:06)
[2018-06-26] MEDS: LOPRESSER PO SCH ×2 (09:06→20:34)
[2018-06-26] MEDS: KEPPRA PO SCH ×3 (09:07→18:06)
[2018-06-26 09:08] VITALS: BP 128/76
--- NOTE | 2018-06-26 09:16 | NUR ---
SPOKE WITH PT ABOUT POSSIBLE MIDLINE PROCEDURE. PT HAS NO QUESTIONS OR CONCERNS AT THIS TIME. PT STATES "I LIKE THAT IDEA"
[2018-06-26] MEDS ORDERED: KCL 20MEQ/100ML 100 ML IV ONE ×3 (10:34→13:00)
--- NOTE | 2018-06-26 10:57 | NUR ---
MIDLINE PROCEDURE FINISHED. PT HAS MULTIPLE IV THERAPIES DUE AT SAME TIME. NOTIFIED DR CONTRERAS. DR CONRTERAS STATED TO INFUSE IV POTASSIUM FIRST, THEN ALBUMIN, THEN ANTIBIOTIC. IV POTASSIUM INITIATED AT THIS TIME. PT PLACED ON TELEMETRY
[2018-06-26 12:00] VITALS: BP 128/66
[2018-06-26] MEDS: NS 1000ML 1,000 ML IV SCH ×2 (13:01→23:26)
[2018-06-26] MEDS ORDERED: BUMINATE 25% 100 ML IV ONE (15:38)
[2018-06-26] MEDS: LEVAQUIN 150 ML IV SCH (17:25)
[2018-06-26 18:00] VITALS: BP 132/72
[2018-06-26] MEDS: LOVENOX SQ SCH (18:05)
--- NOTE | 2018-06-26 18:06 | NUR ---
TEMP 100.5 AX. ADM PRN TYLENOL
--- NOTE | 2018-06-26 18:45 | NUR ---
report received report from offgoing shift
[2018-06-26 20:33] VITALS: BP 115/71
[2018-06-27 00:05] VITALS: BP 144/77
[2018-06-27 04:15] VITALS: BP 150/78
[2018-06-27 05:05] LABS: BASOPHIL # 0.1 10^3/uL (0.0-0.1); BASOPHIL % 0.5 % (0.0-0.2); EOSINOPHIL # 0.2 10^3/uL (0.0-0.2); EOSINOPHIL % 1.2 % (0.0-5.0); HEMOGLOBIN 12.4 g/dL (12.0-15.0); LYMPHOCYTES # 1.3 10^3/uL (1.0-4.8); LYMPHOCYTES % 8.1 % (24.0-44.0); MEAN CELL HGB 29.5 pg (26-34); MEAN CELL HGB CONCENTRATION 32.3 g/dL (33-37); MEAN CORP VOLUME 91.2 fL (78-100); MEAN PLATELET VOLUME 10.5 fL (7.8-11.0); MONOCYTES # 1.8 10^3/uL (0.3-0.8); NEUTROPHIL # 12.6 10^3/uL (1.8-7.7); NEUTROPHILS % 76.5 % (41.0-85.0); RED CELL DISTRIBUTION WIDTH 15.4 % (11.5-14.5); WHITE BLOOD CELL 16.5 10^3/uL (4.5-11.0)
[2018-06-27] MEDS: NS 1000ML 1,000 ML IV SCH ×2 (05:32→20:38)
[2018-06-27 05:33] LABS: CALCIUM 8.7 mg/dL (8.4-10.5); CARBON DIOXIDE 20.5 mmol/L (20.0-32)
[2018-06-27 07:34] VITALS: BP 124/59
--- NOTE | 2018-06-27 07:57 | NUR ---
REPORT RECEIVED REPORT, ASSUMED CARE FOR PATIENT AT THIS TIME.
[2018-06-27] MEDS ORDERED: POTASSIUM CHLORIDE PO STA (07:59)
--- NOTE | 2018-06-27 08:19 | PRM.PN ---
Subjective Subjective Date: Jun 27, 2018 Time: 08:11 Subjective Patient still feels poorly. She describes chills but no documented fever since yesterday. WBC trended up last 24 hours. Patient does not feel comfortable to go home today. Urine cx reviewed, positive for P. Mirab. No further complaints. Patient History: Congestive heart failure 32 MOTHER 33 FATHER VTE VTE Risk Total Score: 3 VTE Risk Score VTE Risk: Score 0-1 = Low Risk (Aggressive mobilization; early ambulation; no VTE prophylaxis required) Score 2: Moderate Risk (Intermittent/Pneumatic Compression Device OR Lovenox/Heparin/Coumadin) Score 3-4: High Risk (Intermittent/Pneumatic Compression Device AND Lovenox/Heparin/Coumadin) Score > or =5: Highest Risk (Intermittent/Pneumatic Compression Device AND Lovenox/Heparin/Coumadin) Review of Systems Allergies: Coded Allergies: No Known Allergies (Unverified , 03/16/18) Scheduled Levetiracetam (Keppra), 1 TAB PO TID, (Reported) Metoprolol Tartrate 25MG (Lopresser 25MG), 1 TAB PO BID, (Reported) Objective Vitals and I/O Vital Sign - Last 24 Hours 06/26/18 06/26/18 06/26/18 06/26/18 09:06 09:08 09:08 09:09 Temp 98.3 98.3 Pulse 97 97 83 Resp 18 18 B/P (MAP) 128/76 128/76 (93) Pulse Ox 92 93 O2 Delivery Room Air Room Air 06/26/18 06/26/18 06/26/18 06/26/18 12:00 18:00 19:17 20:33 Temp 98.3 100.5 98.0 98.3 100.5 98.0 Pulse 83 87 90 82 Resp 18 18 20 20 B/P (MAP) 128/66 (86) 132/72 (92) 115/71 (86) Pulse Ox 91 93 92 94 O2 Delivery Room Air Room Air Room Air 06/26/18 06/26/18 06/27/18 06/27/18 20:34 21:17 00:05 04:15 Temp 98.3 98.5 98.3 98.5 Pulse 82 73 95 Resp 20 20 B/P (MAP) 115/71 144/77 (99) 150/78 (102) Pulse Ox 97 91 O2 Delivery Room Air Room Air Room Air 06/27/18 07:34 Temp 97.9 97.9 Pulse 88 Resp 24 B/P (MAP) 124/59 (80) Pulse Ox 89 O2 Delivery Nasal Canula O2 Flow Rate 2.00 Intake and Output 06/26/18 06/26/18 06/27/18 15:00 23:00 07:00 Intake Total 800 ml Output Total 1200 ml 2070 ml Balance -400 ml -2070 ml General: Alert, Oriented X3, Cooperative, No acute distress HEENT: Atraumatic, PERRLA, EOMI, Mucous membr. moist/pink Neck: Supple, No JVD Lungs: Clear to auscultation, Normal air movement Heart: Regular rate, Normal S1, Normal S2, No murmurs Abdomen: Normal bowel sounds, Soft, No tenderness Extremities: No edema, Normal pulses, No tenderness/swelling Skin: No rashes, No breakdown, No significant lesion Neuro: Normal gait, Normal speech, Strength at 5/5 X4 ext, Normal tone, Sensation intact, Cranial nerves 3-12 NL Psych/Mental Status: Mental status NL, Mood NL Course Sepsis Screening Results: Posi: NEGATIVE Sepsis Qualifier/Stage: NO DEFINITE RISK Vitals & review Data Laboratory Tests Test 06/24/18 14:24 06/24/18 14:28 06/24/18 14:39 06/24/18 15:00 White Blood Count 18.4 10^3/uL Red Blood Count 4.76 10^6/uL Hemoglobin 14.2 g/dL Hematocrit 43.7 % Mean Corpuscular Volume 91.8 fL Mean Corpuscular Hemoglobin 29.8 pg Mean Corpuscular Hemoglobin Concent 32.5 g/dL Red Cell Distribution Width 15.2 % Platelet Count 180 10^3/uL Mean Platelet Volume 10.8 fL Neutrophils (%) (Auto) 82.8 % Lymphocytes (%) (Auto) 5.2 % Monocytes (%) (Auto) 11.3 % Neutrophils # (Auto) 15.3 10^3/uL Lymphocytes # (Auto) 1.0 10^3/uL Monocytes # (Auto) 2.1 10^3/uL Absolute Immature Granulocyte (auto 0.10 10^3 u/L Eosinophils % 0.0 % Basophils % 0.2 % Basophils # 0.0 10^3/uL Eosinophil Count 0.0 10^3/uL Sodium Level 133 mmol/L Potassium Level 3.2 mmol/L Chloride Level 98.0 mmol/L Carbon Dioxide Level 21.6 mmol/L Anion Gap 16.6 Blood Urea Nitrogen 16 mg/dL Creatinine 1.25 mg/dL Estimated GFR () 51.3 BUN/Creatinine Ratio 12.0 Glucose Level 146 mg/dL Calcium Level 9.0 mg/dL Total Bilirubin 2.2 mg/dL Aspartate Amino Transf (AST/SGOT) 29 U/L Alanine Aminotransferase (ALT/SGPT) 26 U/L Alkaline Phosphatase 107 U/L Troponin I < 0.02 ng/mL Pro-B-Type Natriuretic Peptide 201 pg/mL Total Protein 7.7 g/dL Albumin 2.8 g/dL Globulin 4.9 Percent Immature Gran (Cell Imm) 0.50 % Blood Gas Sample Site VBG Chidi Test N/A Lactic Acid (Blood Gas) 1.9 MMOL/L Blood Gas Temperature 37 Differential Total Cells Counted 100 #CELLS Segmented Neutrophils 87 % Band Neutrophils 2 % Lymphocytes 2 % Monocytes 9 % Differential Comment NORMAL Influenza Type A Antigen NEGATIVE Influenza B Immunofluorescence NEGATIVE Current Medications Medications (Trade) Dose Ordered Sig/Dimitris PRN Reason Start Time Stop Time Status Last Admin Azithromycin 500 mg/Sodium Chloride 250 ml @ 175 mls/hr STAT STAT 06/24/18 16:02 06/24/18 17:27 Laboratory Tests 06/26/18 04:38: White Blood Count 15.4H, Red Blood Count 4.22, Hemoglobin 12.5, Hematocrit 38.6 , Mean Corpuscular Volume 91.5, Mean Corpuscular Hemoglobin 29.6, Mean Corpuscular Hemoglobin Concent 32.4L, Red Cell Distribution Width 15.3H, Platelet Count 182, Mean Platelet Volume 10.9, Neutrophils (%) (Auto) 75.3, Lymphocytes (%) (Auto) 8.1L, Monocytes (%) (Auto) 14.5H, Neutrophils # (Auto) 11.6H, Lymphocytes # (Auto) 1.3, Monocytes # (Auto) 2.2H, Absolute Immature Granulocyte (auto 0.23, Eosinophils % 0.4, Basophils % 0.2, Basophils # 0.0, Eosinophil Count 0.1, Sodium Level 136, Potassium Level 3.2L, Chloride Level 103.0, Carbon Dioxide Level 22.2, Anion Gap 14.0, Blood Urea Nitrogen 7, Creatinine 1.00, Estimated GFR () 66.3, BUN/Creatinine Ratio 7.0 , Glucose Level 131H, Calcium Level 8.3L, Magnesium Level 1.9, Total Bilirubin 1.0, Aspartate Amino Transf (AST/SGOT) 43H, Alanine Aminotransferase (ALT/SGPT) 49, Alkaline Phosphatase 117, Total Protein 6.5, Albumin 2.4L, Globulin 4.1, Percent Immature Gran (Cell Imm) 1.50H Assessment/Plan Assessment/Plan Assessment/Plan Patient is a 68 F PMH of seizures disorder and HTN presents with sepsis 2/2 UTI/ Pneumonia. Plan 1. Sepsis 2/2 UTI/CAP: cont IV abx. blood cx negative x 2. Urine cx pos for P. Columba. Cont IV abx. Patient clinically not stable for d/c today. Will give one more day IV abx and monitor labwork in AM. 2. Seizure Disorder: cont Keppra 3. HTN: cont BB. 4. PPx: Lovenox, PPI DEBRA DICKEY MD Jun 27, 2018 08:19
[2018-06-27] MEDS ORDERED: POTASSIUM CHLORIDE ONE (09:53)
[2018-06-27] MEDS: PROTONIX PO SCH (10:07)
[2018-06-27] MEDS: KEPPRA PO SCH ×3 (10:07→18:13)
[2018-06-27] MEDS: LOPRESSER PO SCH ×2 (10:07→20:36)
[2018-06-27] MEDS: LEVAQUIN 150 ML IV SCH (10:39)
[2018-06-27 11:45] VITALS: BP 146/81
[2018-06-27 16:28] VITALS: BP 150/78
--- NOTE | 2018-06-27 18:45 | NUR ---
REPORT REPORT GIVEN TO ONCOMING SHIFT, RELINQUISHED CARE FOR PATIENT AT THIS TIME.
[2018-06-27 19:39] VITALS: BP 151/87
[2018-06-27] MEDS: LOVENOX SQ SCH (20:37)
[2018-06-28 01:31] VITALS: BP 153/88
[2018-06-28 05:17] LABS: BASOPHIL # 0.2 10^3/uL (0.0-0.1); BASOPHIL % 0.9 % (0.0-0.2); EOSINOPHIL # 0.4 10^3/uL (0.0-0.2); EOSINOPHIL % 2.1 % (0.0-5.0); HEMOGLOBIN 12.8 g/dL (12.0-15.0); LYMPHOCYTES # 1.7 10^3/uL (1.0-4.8); LYMPHOCYTES % 9.3 % (24.0-44.0); MEAN CELL HGB 29.8 pg (26-34); MEAN CELL HGB CONCENTRATION 32.6 g/dL (33-37); MEAN CORP VOLUME 91.6 fL (78-100); MEAN PLATELET VOLUME 10.7 fL (7.8-11.0); MONOCYTES % 10.7 % (5.0-12.0); NEUTROPHIL # 13.4 10^3/uL (1.8-7.7); NEUTROPHILS % 72.1 % (41.0-85.0); RED CELL DISTRIBUTION WIDTH 15.7 % (11.5-14.5); WHITE BLOOD CELL 18.6 10^3/uL (4.5-11.0)
[2018-06-28 05:34] VITALS: BP 140/83
[2018-06-28 05:37] LABS: CALCIUM 8.9 mg/dL (8.4-10.5); CARBON DIOXIDE 23.4 mmol/L (20.0-32)
--- NOTE | 2018-06-28 06:52 | NUR ---
Report Report given to ROSETTE Carrasco
[2018-06-28 07:56] VITALS: BP 134/69
[2018-06-28] MEDS: LOPRESSER PO SCH (08:50)
[2018-06-28] MEDS: PROTONIX PO SCH (08:50)
[2018-06-28] MEDS: KEPPRA PO SCH ×2 (08:50→12:57)
[2018-06-28] MEDS: NS 1000ML 1,000 ML IV SCH (09:24)
[2018-06-28] MEDS: LEVAQUIN 150 ML IV SCH (10:38)
--- NOTE | 2018-06-28 11:34 | PRM.DC ---
Discharge Summary Date of Discharge: Jun 28, 2018 Time of Request to Discharge: 11:38 Reason for Visit: Sepsis from Pneumonia/UTI Additional Comments Patient is a 68 F PMH of seizure disorder and HTN admitted with Sepsis. Patient found to have UTI and Pneumonia from imaging and lab evaluation. Patient treated with IV abx for symptoms. Patient had Urine culture return with sensitivities. Patient symptoms improved with respiratory support, IV abx , and patient stable for d/c. Patient WBC remains elevated. We will d/c on course of PO abx x 3 more days. Levofloxacin/Cefdinir. Patient had low potassium on day of d/c and it was repleted PO prior to d/c. Patient informed for close f/u with PCP within 1-2 weeks. Return to care for any worsening symptoms. Patient History: Congestive heart failure 32 MOTHER 33 FATHER General: Alert, Oriented X3, No acute distress HEENT: Atraumatic, PERRLA, EOMI Neck: Supple, No JVD Lungs: Clear to auscultation, Normal air movement Heart: Regular rate, Normal S1, Normal S2 Abdomen: Normal bowel sounds, Soft, No tenderness Extremities: No edema, Normal pulses, No tenderness/swelling Skin: No rashes, No breakdown, No significant lesion Neuro: Normal gait, Normal speech, Strength at 5/5 X4 ext, Normal tone, Sensation intact, Cranial nerves 3-12 NL Psych/Mental Status: Mental status NL, Mood NL Scheduled Levetiracetam (Keppra), 1 TAB PO TID, (Reported) Metoprolol Tartrate 25MG (Lopresser 25MG), 1 TAB PO BID, (Reported) Sepsis Evaluation @ Discharge Laboratory Tests Test 06/24/18 14:24 06/24/18 14:28 06/24/18 14:39 06/24/18 15:00 White Blood Count 18.4 10^3/uL Red Blood Count 4.76 10^6/uL Hemoglobin 14.2 g/dL Hematocrit 43.7 % Mean Corpuscular Volume 91.8 fL Mean Corpuscular Hemoglobin 29.8 pg Mean Corpuscular Hemoglobin Concent 32.5 g/dL Red Cell Distribution Width 15.2 % Platelet Count 180 10^3/uL Mean Platelet Volume 10.8 fL Neutrophils (%) (Auto) 82.8 % Lymphocytes (%) (Auto) 5.2 % Monocytes (%) (Auto) 11.3 % Neutrophils # (Auto) 15.3 10^3/uL Lymphocytes # (Auto) 1.0 10^3/uL Monocytes # (Auto) 2.1 10^3/uL Absolute Immature Granulocyte (auto 0.10 10^3 u/L Eosinophils % 0.0 % Basophils % 0.2 % Basophils # 0.0 10^3/uL Eosinophil Count 0.0 10^3/uL Sodium Level 133 mmol/L Potassium Level 3.2 mmol/L Chloride Level 98.0 mmol/L Carbon Dioxide Level 21.6 mmol/L Anion Gap 16.6 Blood Urea Nitrogen 16 mg/dL Creatinine 1.25 mg/dL Estimated GFR () 51.3 BUN/Creatinine Ratio 12.0 Glucose Level 146 mg/dL Calcium Level 9.0 mg/dL Total Bilirubin 2.2 mg/dL Aspartate Amino Transf (AST/SGOT) 29 U/L Alanine Aminotransferase (ALT/SGPT) 26 U/L Alkaline Phosphatase 107 U/L Troponin I < 0.02 ng/mL Pro-B-Type Natriuretic Peptide 201 pg/mL Total Protein 7.7 g/dL Albumin 2.8 g/dL Globulin 4.9 Percent Immature Gran (Cell Imm) 0.50 % Blood Gas Sample Site VBG Chidi Test N/A Lactic Acid (Blood Gas) 1.9 MMOL/L Blood Gas Temperature 37 Differential Total Cells Counted 100 #CELLS Segmented Neutrophils 87 % Band Neutrophils 2 % Lymphocytes 2 % Monocytes 9 % Differential Comment NORMAL Influenza Type A Antigen NEGATIVE Influenza B Immunofluorescence NEGATIVE Current Medications Medications (Trade) Dose Ordered Sig/Dimitris PRN Reason Start Time Stop Time Status Last Admin Azithromycin 500 mg/Sodium Chloride 250 ml @ 175 mls/hr STAT STAT 06/24/18 16:02 06/24/18 17:27 Laboratory Tests 06/26/18 04:38: White Blood Count 15.4H, Red Blood Count 4.22, Hemoglobin 12.5, Hematocrit 38.6 , Mean Corpuscular Volume 91.5, Mean Corpuscular Hemoglobin 29.6, Mean Corpuscular Hemoglobin Concent 32.4L, Red Cell Distribution Width 15.3H, Platelet Count 182, Mean Platelet Volume 10.9, Neutrophils (%) (Auto) 75.3, Lymphocytes (%) (Auto) 8.1L, Monocytes (%) (Auto) 14.5H, Neutrophils # (Auto) 11.6H, Lymphocytes # (Auto) 1.3, Monocytes # (Auto) 2.2H, Absolute Immature Granulocyte (auto 0.23, Eosinophils % 0.4, Basophils % 0.2, Basophils # 0.0, Eosinophil Count 0.1, Sodium Level 136, Potassium Level 3.2L, Chloride Level 103.0, Carbon Dioxide Level 22.2, Anion Gap 14.0, Blood Urea Nitrogen 7, Creatinine 1.00, Estimated GFR () 66.3, BUN/Creatinine Ratio 7.0 , Glucose Level 131H, Calcium Level 8.3L, Magnesium Level 1.9, Total Bilirubin 1.0, Aspartate Amino Transf (AST/SGOT) 43H, Alanine Aminotransferase (ALT/SGPT) 49, Alkaline Phosphatase 117, Total Protein 6.5, Albumin 2.4L, Globulin 4.1, Percent Immature Gran (Cell Imm) 1.50H Course Sepsis Screening Results: Posi: NEGATIVE Sepsis Qualifier/Stage: NO DEFINITE RISK Vitals & review Data Laboratory Tests Test 06/24/18 14:24 06/24/18 14:28 06/24/18 14:39 06/24/18 15:00 White Blood Count 18.4 10^3/uL Red Blood Count 4.76 10^6/uL Hemoglobin 14.2 g/dL Hematocrit 43.7 % Mean Corpuscular Volume 91.8 fL Mean Corpuscular Hemoglobin 29.8 pg Mean Corpuscular Hemoglobin Concent 32.5 g/dL Red Cell Distribution Width 15.2 % Platelet Count 180 10^3/uL Mean Platelet Volume 10.8 fL Neutrophils (%) (Auto) 82.8 % Lymphocytes (%) (Auto) 5.2 % Monocytes (%) (Auto) 11.3 % Neutrophils # (Auto) 15.3 10^3/uL Lymphocytes # (Auto) 1.0 10^3/uL Monocytes # (Auto) 2.1 10^3/uL Absolute Immature Granulocyte (auto 0.10 10^3 u/L Eosinophils % 0.0 % Basophils % 0.2 % Basophils # 0.0 10^3/uL Eosinophil Count 0.0 10^3/uL Sodium Level 133 mmol/L Potassium Level 3.2 mmol/L Chloride Level 98.0 mmol/L Carbon Dioxide Level 21.6 mmol/L Anion Gap 16.6 Blood Urea Nitrogen 16 mg/dL Creatinine 1.25 mg/dL Estimated GFR () 51.3 BUN/Creatinine Ratio 12.0 Glucose Level 146 mg/dL Calcium Level 9.0 mg/dL Total Bilirubin 2.2 mg/dL Aspartate Amino Transf (AST/SGOT) 29 U/L Alanine Aminotransferase (ALT/SGPT) 26 U/L Alkaline Phosphatase 107 U/L Troponin I < 0.02 ng/mL Pro-B-Type Natriuretic Peptide 201 pg/mL Total Protein 7.7 g/dL Albumin 2.8 g/dL Globulin 4.9 Percent Immature Gran (Cell Imm) 0.50 % Blood Gas Sample Site VBG Chidi Test N/A Lactic Acid (Blood Gas) 1.9 MMOL/L Blood Gas Temperature 37 Differential Total Cells Counted 100 #CELLS Segmented Neutrophils 87 % Band Neutrophils 2 % Lymphocytes 2 % Monocytes 9 % Differential Comment NORMAL Influenza Type A Antigen NEGATIVE Influenza B Immunofluorescence NEGATIVE Current Medications Medications (Trade) Dose Ordered Sig/Dimitris PRN Reason Start Time Stop Time Status Last Admin Azithromycin 500 mg/Sodium Chloride 250 ml @ 175 mls/hr STAT STAT 06/24/18 16:02 06/24/18 17:27 Laboratory Tests 06/26/18 04:38: White Blood Count 15.4H, Red Blood Count 4.22, Hemoglobin 12.5, Hematocrit 38.6 , Mean Corpuscular Volume 91.5, Mean Corpuscular Hemoglobin 29.6, Mean Corpuscular Hemoglobin Concent 32.4L, Red Cell Distribution Width 15.3H, Platelet Count 182, Mean Platelet Volume 10.9, Neutrophils (%) (Auto) 75.3, Lymphocytes (%) (Auto) 8.1L, Monocytes (%) (Auto) 14.5H, Neutrophils # (Auto) 11.6H, Lymphocytes # (Auto) 1.3, Monocytes # (Auto) 2.2H, Absolute Immature Granulocyte (auto 0.23, Eosinophils % 0.4, Basophils % 0.2, Basophils # 0.0, Eosinophil Count 0.1, Sodium Level 136, Potassium Level 3.2L, Chloride Level 103.0, Carbon Dioxide Level 22.2, Anion Gap 14.0, Blood Urea Nitrogen 7, Creatinine 1.00, Estimated GFR () 66.3, BUN/Creatinine Ratio 7.0 , Glucose Level 131H, Calcium Level 8.3L, Magnesium Level 1.9, Total Bilirubin 1.0, Aspartate Amino Transf (AST/SGOT) 43H, Alanine Aminotransferase (ALT/SGPT) 49, Alkaline Phosphatase 117, Total Protein 6.5, Albumin 2.4L, Globulin 4.1, Percent Immature Gran (Cell Imm) 1.50H Plan Discharge Date: Jun 28, 2018 Dicharge DX: Sepsis, UTI, Community Acquired Pneumonia Discharge Disposition: Stable Plan ok to d/c to home self care medications: per med rec list, scripts for abx hand written F/U with PCP within 1-2 weeks Return to care for worsening/concerning symptoms Diet: regular Activity: as tolerated DEBRA DICKEY MD Jun 28, 2018 11:33
[2018-06-28 12:36] VITALS: BP 130/52
[2018-06-28] MEDS: POTASSIUM CHLORIDE PO SCH ×2 (12:57→15:20)
[2018-06-28 15:50] VITALS: BP 130/52
--- NOTE | 2018-06-28 15:55 | NUR ---
DISCHARGED Pt DISCHARGED TO HOME FROM THE UNIT, EDUCATED ON DISCHARGE PACKET Pt VERBALIZED UNDERSTANDING. IV, TELE D/C ASSISTED TO THE MAIN EXIT IN WC ACCOMPANIED BY HER FAMILY MEMBER.
== END 2018-06-28 15:55 | disposition home or self-care (01) | DRG 871 ==
LOC: ER 13:52 → MS 16:18 → EDBEDREQ 16:21 → EDBEDREQSVC 16:21
PROVIDERS: ADMIT Internal Medicine; ATTEND Internal Medicine
PROC: 05HY33Z Insertion of Infusion Device into Upper Vein, Percutaneous Approach (ICD-10-PCS; principal; 2018-06-26)
DX: A41.9 Sepsis, unspecified organism (principal); J18.9 Pneumonia, unspecified organism; Z68.41 Body mass index [BMI] 40.0-44.9, adult; E44.1 Mild protein-calorie malnutrition; N39.0 Urinary tract infection, site not specified; G40.909 Epilepsy, unspecified, not intractable, without status epilepticus; R73.9 Hyperglycemia, unspecified; E87.6 Hypokalemia; B96.89 Other specified bacterial agents as the cause of diseases classified elsewhere; E66.9 Obesity, unspecified; E88.09 Other disorders of plasma-protein metabolism, not elsewhere classified; E16.2 Hypoglycemia, unspecified; N95.9 Unspecified menopausal and perimenopausal disorder; I10 Essential (primary) hypertension; I25.2 Old myocardial infarction; Z98.51 Tubal ligation status; Z87.891 Personal history of nicotine dependence; Z87.442 Personal history of urinary calculi; Z82.49 Family history of ischemic heart disease and other diseases of the circulatory system
CPT/HCPCS: 36415; 36569; 36600; 71045; 80053; 81000; 82803; 83605; 83735; 83880; 84484; 85025; 86710; 87040; 87077; 87086; 87186; 93005; 99285; G0378; J0456; J0696; J1650; J1956; J3490; J7030; J7050; J7620; P9047; J3480; Q0144

== ENCOUNTER 2019-07-13 11:22 | Emergency (ER) | payer MEDICARE, BC ==
[~2019-07-13] VITALS: Ht 162.6 cm; Wt 113.4 kg
[~2019-07-13 11:22] MED LIST: LEVE500T54 PO; METO25TA4 PO
[2019-07-13 11:51] VITALS: BP 132/74
--- NOTE | 2019-07-13 12:11 | ER.PDOC ---
General Chief Complaint: Sore Throat Stated Complaint: SORE THROAT Time seen by MD: 11:45 Source: patient Exam Limitations: no limitations History of Present Illness Initial Comments Pt states she has had a sore throat for the last 3-4 days that she feels is getting worse. She states she is unable to sleep, eat or swallow. She is laying on the exam table is in mod distress some tearful. Timing/Duration: last week Associated Symptoms: fever/chills, severe sore throat, unable to swallow, swollen glands Severity: moderate Allergies: Coded Allergies: No Known Allergies (Unverified , 03/16/18) Home Meds Reported Medications Metoprolol Tartrate 25MG (LOPRESSER 25MG) 25 Mg Tablet, 1 TAB PO BID, #180 TAB 1 Refill 06/25/18 Levetiracetam (KEPPRA) 500 Mg Tablet, 1 TAB PO TID, #180 TAB 3 Refills 06/25/18 Past Medical History Medical History: high cholesterol, hypertension Surgical History: tubal, other Social History Alcohol Use: rarely Drug Use: none Constitutional: chills, fever, malaise Eyes: no symptoms reported Ears: no symptoms reported Nose: no symptoms reported Mouth: pain (throat) Throat: pain, hoarse, painful swallowing, difficulty with fluids Respiratory: no symptoms reported Cardiovascular: no symptoms reported Gastrointestinal: no symptoms reported Musculoskeletal: no symptoms reported Skin: no symptoms reported Neurological: no symptoms reported Hematologic/Lymphatic: no symptoms reported Immunological/Allergic: no symptoms reported All Other Systems: Reviewed and Negative Physical Exam General Appearance: moderate distress Head/Neck: head nml inspection, neck nml inspection, no lymphadenopathy Eyes: eyes nml inspection Mouth: lips, gums nml Throat: no airway problems, moderate distress, pharyngeal erythema, h oarse/muffled voice Respiratory: no resp. distress, lungs clear CVS: reg. rate & rhythm, heart sounds nml Abdomen: non-tender Extremities: ROM nml Skin Exam: Normal Color, Warm/Dry NEURO/PSYCH: oriented X3, mood/effect nml Results/Orders Results/Orders Orders - MUNIRA BARBOUR [employer] Strep Screen (07/13/19 11:38) Influenza A&B (07/13/19 11:38) Vital Signs Date Time Temp Pulse Resp B/P (MAP) Pulse Ox O2 Delivery O2 Flow Rate FiO2 07/13/19 11:51 99.3 89 20 132/74 (93) 93 07/13/19 11:34 99.3 89 20 93 Laboratory Tests Test 07/13/19 11:46 Influenza Type A Antigen Pending Influenza B Immunofluorescence Pending Group A Streptococcus Screen NEGATIVE (NEGATIVE) Departure Time of Disposition: 12:13 Disposition: 01 HOME, SELF-CARE Impression: Primary Impression: Sore throat and laryngitis Condition: Stable Patient Instructions: Sore Throat, [id number] Referrals: ADAMS ALMANZAR NP (PCP) PRIMARY CARE PROVIDER Additional Instructions: Be sure to continue Tylenol every 6 hours. Warm salt water gargles every 1-2 hours while awake. Cepacol ES or Chloraseptic Throat [place] as directed Duration or Time Spent with Pa: 20 MUNIRA BARBOUR NP Jul 13, 2019 12:10
== END 2019-07-13 12:16 | disposition home or self-care (01) ==
LOC: ER 11:22
DX: J04.0 Acute laryngitis (principal); E78.00 Pure hypercholesterolemia, unspecified; I10 Essential (primary) hypertension; Z79.899 Other long term (current) drug therapy
CPT/HCPCS: 87070; 87804; 87880; 99284

== ENCOUNTER 2022-03-21 23:00 | Emergency (ER) | payer MEDICARE, BC ==
[~2022-03-21] VITALS: Ht 162.6 cm; Wt 121.1 kg
[2022-03-21 23:00] VITALS: BP 134/77
--- NOTE | 2022-03-21 23:00 | NUR ---
ARRIVAL BROUGHT TO ROOM VIA WHEELCHAIR. CHEST PAIN STARTED ABOUT 30 MINUTES AGO RELIEF WITH NITRO 0.4MG X2 DOSES AT HOME PRIOR TO ARRIVAL TO ER VIA PERSONAL VEHICLES. NO ASPIRIN TODAY. C/O PAIN 07/18 AT THIS TIME TO CHEST. DR. MIXON AT BEDSIDE. LABS BEING DRAWN AND EKG IN PROGRESS. ALERT AND ORIENTEDE X3.
[2022-03-21] MEDS ORDERED: ASPIRIN PO STA (23:11)
--- NOTE | 2022-03-21 23:15 | ER.PDOC ---
General Chief Complaint: Requesting Medical Care Stated Complaint: CHEST HEAVINESS Time seen by MD: 23:13 Source: patient Exam Limitations: no limitations History of Present Illness Initial Comments Chest pain this evening. Patient took 2 nitros prior to coming to the emergency room which relieved her pain. She is down to 1 out of 10. Timing/Duration: 1 hour Severity/Quality: moderate, other (heaviness) Radiation: no radiation Prior CP/Workup: No Prior Chest Pain Nitro Today/Relief: 0.4 mg x 2 Aspirin Today: 325 mg x 1, Provided By ED Associated Symptoms: denies symptoms Allergies: Coded Allergies: No Known Allergies (Unverified , 03/16/18) Home Meds Reported Medications Metoprolol Tartrate 25MG (LOPRESSER 25MG) 25 Mg Tablet, 1 TAB PO BID, #180 TAB 1 Refill 06/25/18 Levetiracetam (KEPPRA) 500 Mg Tablet, 1 TAB PO TID, #180 TAB 3 Refills 06/25/18 Past Medical History Medical History: high cholesterol, hypertension Surgical History: bladder suspension Social History Smoking: non-smoker Alcohol Use: none Drug Use: none Constitutional: no symptoms reported EENTM: no symptoms reported Respiratory: no symptoms reported Cardiovascular: see HPI Gastrointestinal: no symptoms reported Genitourinary: no symptoms reported All Other Systems: Reviewed and Negative Physical Exam General Appearance: No Apparent Distress, WD/WN, Obese HEENT: PERRL/EOMI, Normal ENT Inspection, TMs Normal, Pharynx Normal Neck: Non-Tender, Full Range of Motion, Supple, Normal Inspection Respiratory: chest non-tender, lungs clear, normal breath sounds, no respiratory distress, no accessory muscle use Cardiovascular: Normal Peripheral Pulses, Regular Rate, Rhythm, No Edema, No Gallop, No JVD, No Murmur Gastrointestinal: Normal Bowel Sounds, No Organomegaly, No Pulsatile Mass, Non Tender, Soft Extremities: Normal Range of Motion, Non-Tender, Normal Inspection, No Pedal Edema, No Calf Tenderness, Normal Capillary Refill 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 (03/21/22 23:11) D-Dimer (03/21/22 23:11) Xr Chest 1v (03/21/22 23:11) Ekg-Routine (03/21/22 23:11) Troponin I High Sensitivity (03/21/22 23:11) Aspirin (Aspirin) (03/21/22 23:11) Aspirin (Aspirin) (03/21/22 23:21) Administered Medications Medications (Trade) Dose Ordered Sig/Dimitris Route PRN Reason Start Time Stop Time Status Last Admin Dose Admin Aspirin (Aspirin) 325 mg STAT STAT PO 03/21/22 23:11 03/21/22 23:12 DC 03/21/22 23:23 325 MG Laboratory Tests Test 03/21/22 23:15 White Blood Count 11.1 10^3/uL (4.5-11.0) H Red Blood Count 4.69 10^6/uL (4.00-5.20) Hemoglobin 14.1 g/dL (12.0-15.0) Hematocrit 44.5 % (36.0-46.0) Mean Corpuscular Volume 94.9 fL (78-100) Mean Corpuscular Hemoglobin 30.1 pg (26-34) Mean Corpuscular Hemoglobin Concent 31.7 g/dL (33-36.5) L Red Cell Distribution Width 14.4 % (11.5-14.5) Platelet Count 256 10^3/uL (150-400) Mean Platelet Volume 10.1 fL (7.8-11.0) Neutrophils (%) (Auto) 63.9 % (41.0-85.0) Lymphocytes (%) (Auto) 23.9 % (24.0-44.0) L Monocytes (%) (Auto) 9.1 % (5.0-12.0) Neutrophils # (Auto) 7.1 10^3/uL (1.8-7.7) Lymphocytes # (Auto) 2.64 10^3/uL1 (1.0-4.8) Monocytes # (Auto) 1.0 10^3/uL (0.3-0.8) H Absolute Immature Granulocyte (auto 0.04 10^3 u/L (0-2) Absolute Eosinophils (auto) 0.3 10^3/uL (0.0-0.2) H Immature Granulocytes % 0.40 % (0.00-0.50) Eosinophils % 2.4 % (0.0-5.0) Basophils % 0.7 % (0.0-0.2) H Basophils # 0.1 10^3/uL (0.0-0.1) Prothrombin Time 9.5 SEC (9.1-11.5) Prothrombin Time INR (Non-Therap) 0.9 Activated Partial Thromboplast Time 26.1 SEC (22.5-33.1) D-Dimer 0.23 mg/L (0.19-0.49) Sodium Level 141 mmol/L (132-145) Potassium Level 4.1 mmol/L (3.6-5.2) Chloride Level 104.0 mmol/L (96-109) Carbon Dioxide Level 25.0 mmol/L (20.0-32) Anion Gap 16.1 Blood Urea Nitrogen 19 mg/dL (7-18) H Creatinine 0.91 mg/dL (0.59-1.40) Estimated GFR () 73.3 (>/=60) Est GFR (CKD-EPI)(Non-Afr Vietnamese) 60.6 (>/=60) BUN/Creatinine Ratio 20.0 Glucose Level 122 mg/dL (70-110) H Calcium Level 9.4 mg/dL (8.4-10.5) Total Bilirubin 0.7 mg/dL (0.2-1.0) Aspartate Amino Transferase (AST) 17 U/L (0-35) Alanine Aminotransferase (ALT) 35 U/L (12-78) Alkaline Phosphatase 115 U/L (50-136) Total Creatine Kinase 70 U/L (26-192) Creatine Kinase MB 1.1 ng/mL (0.5-3.6) Troponin I High Sensitivity < 4 ng/L (0-50) Pro-B-Type Natriuretic Peptide 66 pg/mL (0-125) Total Protein 7.4 g/dL (6.4-8.2) Albumin 3.5 g/dL (3.4-5.0) Globulin 3.9 Albumin/Globulin Ratio 0.897 Progress Progress CBC, chemistry, D-dimer and cardiac enzymes are unremarkable. Patient had taken to nitroglycerin tablets sublingual before coming to the ED and she is currently pain-free. I wanted to admit her for observation and ADI but patient refused to be admitted. She signed and left AGAINST MEDICAL ADVICE. She understands that leaving AGAINST MEDICAL ADVICE may result in worsening condition and . EKG/XRAY/CT/US EKG: NSR EKG Comments: HR 78, normal P axis XRAY: chest (Nothing acute) ER DEPART Departure Time of Disposition: 00:22 Disposition: 07 LEFT AGAINST MEDICAL ADVICE Impression: Primary Impression: Chest pain at rest Condition: Against Medical Advice Referrals: ADAMS ALMANZAR NP (PCP) PRIMARY CARE PROVIDER Duration or Time Spent with Pa: 30 min ORAL LOPEZ MD Mar 21, 2022 23:15
[2022-03-21] MEDS ORDERED: ASPIRIN ONE (23:21)
--- NOTE | 2022-03-21 23:22 | PCM.EKG ---
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
[2022-03-21 23:32] LABS: BASOPHIL # 0.1 10^3/uL (0.0-0.1); BASOPHIL % 0.7 % (0.0-0.2); EOSINOPHIL # 0.3 10^3/uL (0.0-0.2); EOSINOPHIL % 2.4 % (0.0-5.0); LYMPHOCYTES # 2.64 10^3/uL1 (1.0-4.8); LYMPHOCYTES % 23.9 % (24.0-44.0); MEAN CORP HGB 30.1 pg (26-34); MONOCYTES % 9.1 % (5.0-12.0); NEUTROPHIL # 7.1 10^3/uL (1.8-7.7); NEUTROPHILS % 63.9 % (41.0-85.0); PLATELET COUNT 256 10^3/uL (150-400); RED CELL DISTRIBUTION WIDTH 14.4 % (11.5-14.5)
--- NOTE | 2022-03-21 23:41 | DIREP ---
PROCEDURE:CHEST 1 VIEW COMPARISON:[facility], CR, XRAY CHEST SINGLE VW, 06/24/2018, 01:54 PM. [facility], CR, XRAY RIBS W/PA CHEST [id number], 03/16/2018, 09:52 PM. INDICATIONS:Chest pain FINDINGS: LUNGS/PLEURA:Stable linear scar in the right lower lung. No focal consolidation or focal infiltrate. CARDIAC:Mild cardiomegaly. MEDIASTINUM:Normal. No visible mass or adenopathy. BONES:No acute findings. DJD of both AC joints. OTHER:Negative. CONCLUSION:Mild cardiomegaly with no evidence of pulmonary alveolar edema, pleural effusion, or pneumonia consolidation. Stable linear scarring right lower lung. Dictated by: Micah Loyola M.D. on 03/21/2022 at 11:38 PM
[2022-03-21 23:51] LABS: GLUCOSE 122 mg/dL (70-110)
--- NOTE | 2022-03-22 00:22 | NUR ---
AMA DR ORAL NORWOODA IN TO DISCUSS ADMISSION TO HOSPITAL PT REFUSED SIGNED OUT AMA.
== END 2022-03-22 00:22 | disposition left against medical advice (07) ==
LOC: ER 23:00
DX: R07.9 Chest pain, unspecified (principal); I10 Essential (primary) hypertension; E78.00 Pure hypercholesterolemia, unspecified
CPT/HCPCS: 36415; 71045; 80053; 82550; 82553; 83880; 84484; 85025; 85379; 85610; 85730; 93005; 99285